=== PATIENT | female | born 1955 ===

== ENCOUNTER 2016-06-12 11:53 | Emergency (ER) | payer OTHER ==
[2016-06-12] MEDS ORDERED: BUSPIRONE HCL7.5 M1 PO (11:57)
--- NOTE | 2016-06-12 12:17 | ED MVC/FALL/TRAUMA COMPLAINT ---
History of Present Illness General Chief Complaint: Fall Stated Complaint: BIBA FALL Source: patient Exam Limitations: no limitations Vital Signs & Intake/Output Vital Signs & Intake/Output Vital Signs Date Time Temp Pulse Resp B/P Pulse O2 O2 Flow FiO2 Ox Delivery Rate 06/12 1405 97.5 65 16 147/78 98 Room Air 06/12 1219 Room Air 06/12 1157 82 16 166/73 98 Room Air Allergies Uncoded Allergies: FOOD PRESERVATIVES - UNK WHICH PER PT (Intermediate, HIVES 06/12/16) Reconcile Medications Buspirone HCl 7.5 MG TABLET 0.5 TAB PO PRN ANXIETY (Reported) Triage Note: MACKENZIE FROM [employer] S/P MECHANICAL TRIP AND FALL ON FOOTING BARS OF CHAIR. STATES SHE FELL ON COCCYX AREA AND EXPERIENCING 3/10 THROBBING/ACHING PAIN. ALSO REPORTING WEAKNESS AND SHAKINESS UPON ARRIVAL. DENIES HEADSTRIKE OR LOSS OF CONSCIOUSNESS. DENIES RADIATION OF PAIN, NUMBNESS OR TINGLING. AMBULATORY TO BATHROOM ON ARRIVAL. Triage Nurses Notes Reviewed? 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 Denies any head strike however does complain of a gradual onset of bilateral muscular neck discomfort. No medications given prior to arrival. Patient was brought in by ambulance. Denies any head strike. Denies any abdominal pain back pain saddle paresthesia bowel or bladder incontinence. Patient can ambulate with steady gait (DEVANG MENDOZA) Past History Travel History Traveled to [place] past 21 day No Medical History Any Pertinent Medical History? see below for history Neurological: NONE EENT: NONE Cardiovascular: NONE Respiratory: asthma Gastrointestinal: NONE Hepatic: NONE Renal: NONE Musculoskeletal: NONE Psychiatric: anxiety Endocrine: NONE Blood Disorders: NONE Cancer(s): NONE Surgical History Surgical History: non-contributory Psychosocial History What is your primary language Romansh Tobacco Use: Never used Family History Hx Contributory? No (DEVANG MENDOZA) Review of Systems Review of Systems Constitutional: Reports: no symptoms. Eyes: Reports: no symptoms. Ears, Nose, Throat, Mouth: Reports: no symptoms. Respiratory: Reports: no symptoms. Cardiovascular: Reports: no symptoms. Gastrointestinal/Abdominal: Reports: no symptoms. Genitourinary: Reports: no symptoms. Musculoskeletal: Reports: see HPI. Skin: Reports: no symptoms. Neurological/Psychological: Reports: no symptoms. All Other Systems: Reviewed and Negative (DEVANG MENDOZA) Physical Exam Physical Exam General Appearance: no apparent distress, alert Comments: Well-developed well-nourished person in no acute distress HEENT: Normal EENT exam, extraocular motion intact, no nystagmus. Pupils equally round and reactive to light and accommodation. Nose is atraumatic. External auditory canal and Tympanic membranes clear. Pharynx normal. No swelling or edema. Neck: Supple, no lymphadenopathy, normal range of motion without pain or tenderness No central spinous tenderness, bilateral paracervical muscular point tenderness Back: No central spinous tenderness , no CVA tenderness. Coccyx point tenderness noted Cardiovascular: Regular rate and rhythms no murmurs rubs or gallops, normal JVP Respiratory: Chest nontender. No respiratory distress.breath sounds clear to auscultation bilaterally Abdomen: Soft, nontender nondistended, no appreciable organomegaly. Normal bowel sounds. No ascites Extremity: No edema, no calf tenderness to palpation, normal and equal pulses. Bilateral lower extremity myotomes dermatomes intact Neuro: Alert oriented x3, motor sensory normal, Skin: No appreciable rash on exposed skin, skin is warm and dry. Psych: Mood and affect is normal, memory and judgment is normal. Core Measures ACS in differential dx? No Severe Sepsis Present: No Septic Shock Present: No (DEVANG MENDOZA) Progress Differential Diagnosis: aoritic dissection, abd injury, C/T/L spine injury, ext injury, ICH, pelvis injury, pnemothorax, spinal cord injury, FRACTURE, CAUDA EQUINA SYNDROME Plan of Care: Orders Procedure Date/time Status URINALYSIS 06/12 1223 Complete Laboratory Tests 06/12/16 1225: Urine Color YEL, Urine Clarity CLEAR, Urine pH 6.5, Ur Specific Yancey 1.010, Urine Protein NEG, Urine Ketones NEG, Urine Nitrite NEG, Urine Bilirubin NEG, Urine Urobilinogen 0.2, Ur Leukocyte Esterase NEG, Ur Microscopic EXAM NOT REQUIRED, Urine Hemoglobin NEG, Urine Glucose NEG Patient currently is in no apparent distress patient had normal steady gait Patient's lower extremities were neurovascularly intact patient has nontender abdomen and no central spinous tenderness. X-rays were unremarkable for osseous injury I discussed x-ray results with patient On discharge patient looks well no apparent distress and will comply with discharge instructions and had no questions (DEVANG MENDOZA) Diagnostic Imaging: Viewed by Me: Radiology Read. Radiology Impression: no fracture Comments: PATIENT: ANT ONEAL PRESENT AGE: 61 PATIENT ACCOUNT NO: [id number] : 59 LOCATION: [facility] ORDERING PHYSICIAN: DEVANG CARLOS SERVICE DATE: 06/12/16 EXAM TYPE: RAD - XRY-SACRUM AND COCCYX EXAMINATION: XR SACRUM AND COCCYX CLINICAL INFORMATION: Status post fall, pain. COMPARISON: None TECHNIQUE: 2 views of the sacrum, coccyx, total of 3 images were obtained. FINDINGS: Mild diffuse osteopenia is noted. There is no displaced sacrococcygeal fracture identified. The visualized part of the pelvis appears intact. Soft tissues are unremarkable. IMPRESSION: Mild diffuse osteopenia and no radiographic evidence of any displaced sacrococcygeal fracture. (DEVANG MENDOZA) Departure Departure Disposition: HOME OR SELF CARE Condition: Stable Clinical Impression Primary Impression: Coccyx contusion Additional Instructions: As discussed begin icing the area directly 20 minutes every 2 hours. Begin over -the-counter ibuprofen 3 tablets of 200 mg every 8 hours for pain and inflammation. If symptoms worsen return to emergency room. If no better in 5 days follow-up with your primary care doctor Departure Forms: Customer Survey General Discharge Information (DEVANG MENDOZA) PA/SCHOOL CHILD CARE ATTENDANT Co-Sign Statement Statement: ED Attending supervision documentation- x I saw and evaluated the patient. I have also reviewed all the pertinent lab results and diagnostic results. I agree with the findings and the plan of care as documented in the PA's/SCHOOL CHILD CARE ATTENDANT's documentation. [] I have reviewed the ED Record and agree with the PA's/SCHOOL CHILD CARE ATTENDANT's documentation. [] Additions or exceptions (if any) to the PAs/SCHOOL CHILD CARE ATTENDANT's note and plan are summarized below: [] (ENE MCALLISTER,SHAYY)
[2016-06-12 14:05] VITALS: BP 147/78
--- NOTE | 2016-06-12 14:45 | RADIOLOGY REPORT ---
EXAMINATION: XR SACRUM AND COCCYX CLINICAL INFORMATION: Status post fall, pain. COMPARISON: None TECHNIQUE: 2 views of the sacrum, coccyx, total of 3 images were obtained. FINDINGS: Mild diffuse osteopenia is noted. There is no displaced sacrococcygeal fracture identified. The visualized part of the pelvis appears intact. Soft tissues are unremarkable. IMPRESSION: Mild diffuse osteopenia and no radiographic evidence of any displaced sacrococcygeal fracture.
== END 2016-06-12 14:56 ==
LOC: ERH 11:53
DX: S30.0XXA Contusion of lower back and pelvis, initial encounter (principal); W19.XXXA Unspecified fall, initial encounter
CPT/HCPCS: 72220; 81003